=== PATIENT | male | born 1970 | race African-American/Black ===

== ENCOUNTER 2024-10-14 10:29 | Emergency (ER) | payer OTHER, SELFPAY ==
[2024-10-14 10:35] VITALS: BP 141/86
[2024-10-14 11:01] VITALS: BP 116/74
--- NOTE | 2024-10-14 11:20 | ED.GENMED ---
History of Present Illness
General
Chief Complaint: Chest Pain
Source: patient
Time Seen by Provider: 10/14/24 11:09
History of Present Illness
History of Present Illness:
54yoM with a history of hyperlipidemia presenting for evaluation of chest pain. Patient was sitting on the couch last night and was falling asleep. He woke up with pain in the right side of his chest around 8pm. The pain is described as a shooting
pain. He reports being sweaty when the pain first started. The pain has been intermittent since it began and intermittently radiates down the right arm. His pain is currently rated as a 6/10 in severity. The pain is worse with certain positions. He
denies any shortness of breath, nausea, leg swelling, syncope, paresthesias. He works at the [employer] and walks >8 miles a day. He denies any pain with exertion.
Phy Exam
General Physical Exam
General Presentation: well appearing and no apparent distress
General age: appears stated age
General Skin: warm and dry
General Habitus: normal
General Mental: alert
General Hydration: appears well hydrated
ENT Exam
ENT Exam: normocephalic
Cardiovascular Exam
Cardiovascular Exam: regular rate/rhythm, no murmur and normal peripheral pulses (2+ radial and DP pulses bilaterally)
Pulmonary Exam
Pulmonary Exam: lungs clear, no respiratory distress, no rales, no crackles, no rhonchi and other (+Point tenderness to R chest wall. No skin changes. )
Skin Exam
Skin Exam: normal color and warm/dry
Psychiatric Exam
Psychiatric Exam: normal mood/affect
Scores
Heart Score for Chest Pain Patients
STEMI patient?: No
History: Slightly or Non-Suspicious
ECG: Nonspecific Repolarization
Age: >45 - <65 years
Risk Factors: 1 or 2 Risk Factors
Troponin: </= Normal Limit
Heart Score for Chest Pain Patients: 3
Heart Score Risk: 2.5% MACE over next 6 weeks
Course
Orders/Labs/Results
Orders:
Orders
10/14/24 10:30
EKG [Electrocardiogram (*1)] Urgent
Reason for Study: Chest Pain
EKG- Treatment ONCE
10/14/24 11:16
Acetaminophen [Tylenol] 1,000 mg PO NOW STA
10/14/24 11:17
Cardiac Monitoring- Treatment ONCE
CR Chest - 2 Views Urgent
Comment:
Reason For Exam: CP
10/14/24 12:15
Complete Blood Count/With Diff Urgent
Comprehensive Metabolic Panel Urgent
Troponin I Urgent
Abnormal Lab Results
10/14/24
12:15
Hgb 12.9 L g/dL
(13.0-18.0)
MCH 26.8 L pg
(27.0-31.0)
MCHC 31.2 L g/dL
(33.0-37.0)
Neutrophils % 38.4 L %
(42.2-75.2)
Monocytes % 11.4 H %
(1.7-9.3)
Glucose 107 H mg/dl
(70-99)
10/14/24 12:15
10/14/24 12:15
Vital Signs
Initial and Last Documented VS:
Initial Vital Signs
Temp Pulse Resp BP Pulse Ox
98.4 F 83 18 141/86 94
10/14/24 10:35 10/14/24 10:35 10/14/24 10:35 10/14/24 10:35 10/14/24 10:35
Last Documented Vital Signs
Temp Pulse Resp BP Pulse Ox
98.4 F 69 19 133/89 98
10/14/24 10:35 10/14/24 13:00 10/14/24 13:00 10/14/24 13:00 10/14/24 13:00
MDM/Problems Addressed
Differential Diagnosis Includes:
54yoM here with R sided chest pain that started last night. Intermittent. Radiates to R arm. Worse with certain positions. VSS. He is well appearing in no distress. There is point tenderness to the chest wall on exam. Exam otherwise reassuring.
Differential diagnosis includes but is not limited to: musculoskeletal, ACS, pneumonia, pneumothorax, less likely PE
Initial ED plan: Check cardiac labs, EKG, and CXR.
*EKG
Interpreted by ED Provider?: Yes
EKG Intrepretation Date: 10/14/24
Heart Rate: 73
Rate: normal
Rhythm: sinus
[place]: normal axis
Interval: normal interval
QRS Pattern: normal QRS
Ischemia: T-wave inversion (Nonspecific ST/T wave changes in leads III and aVF. No prior EKGs to compare to. )
*Critical Care Note
Total Time (30-74mins, 75-104mins- exclusive of procedures): Not Applicable
Update Note
Update Note:
EKG shows nonspecific changes in leads III and aVF. No other EKG changes noted and no prior EKGs to compare to. Troponin WNL. CXR is clear. Pain improved to a 4/10 in severity after Tylenol. Question whether pain is musculoskeletal as pain worsens
with certain positions and there is chest wall tenderness on exam. HEART score is 3. No indication for hospitalization at this time. Advised close f/u with PCP and cardiology. Strict ED return precautions discussed. He expressed understanding and is
agreeable to plan. He was discharged in stable condition.
ED Attending Note
-
Portions of this chart may have been created with voice recognition software.� Occasional wrong word or��sound alike� substitutions may have occurred due to the inherent limitations of voice recognition software.
Discharge Plan
Departure
Patient Disposition: Home (Routine Discharge)
Date of Disposition: 10/14/24
Time of Disposition: 13:07
Patient with high blood pressure during this ER visit?: No
Discharge Problem:
Chest pain, Nonspecific abnormal electrocardiogram (ECG)
Instructions: Chest Pain PCP Follow Up
Referrals:
Franc Acuña MD [Active] -
Quan Sanchez DO [Family Provider] -
Activity Restrictions/Additional Instructions:
Please call today to schedule a follow-up with your family doctor and cardiology. Return to the ER immediately with any new or worsening symptoms.
Interventions
Interventions:
*Risk Screen - Suicide Last Done: 10/14/24 10:35
*General Assessment Last Done: 10/14/24 10:35
*Neglect/Abuse Screening Last Done: 10/14/24 10:35
ED- Fall Risk Assessment Last Done: 10/14/24 12:18
*Nursing Disposition Last Done: 10/14/24 13:37
ED- Cardiac Assessment Last Done: 10/14/24 12:18
Discharge Date and Time
Discharge Date/Time: 10/14/24 13:37
Print Language: ARGENTINE
[2024-10-14 12:14] VITALS: BMI 31.2
[2024-10-14] MEDS: TYLENOL 1000 MG PO (12:14)
[2024-10-14 12:16] VITALS: BP 126/78
[2024-10-14 12:31] LABS: % Basophils 0.9 % (0-2); % Eosinophils 5.5 % (0-6); % Immature Granulocytes 0.4 % (0-0.5); % Lymphocytes 43.4 % (20.5-51.1); % Monocytes 11.4 % (1.7-9.3); % Neutrophils 38.4 % (42.2-75.2); Absolute Basophils 0.1 10^3/uL (0-0.2); Absolute Eosinophils 0.3 10^3/uL (0-0.7); Absolute Lymphocytes 2.4 10^3/uL (1.2-3.4); Absolute Monocytes 0.6 10^3/uL (0.1-0.6); Absolute Neutrophils 2.1 10^3/uL (1.4-6.5); Hematocrit 41.3 % (39.0-52.0); Hemoglobin 12.9 g/dL (13.0-18.0); Mean Corp Hgb Conc. 31.2 g/dL (33.0-37.0); Mean Corpuscular Hgb 26.8 pg (27.0-31.0); Mean Corpuscular Volume 85.9 fL (80.0-94.0); Mean Platelet Volume 10.2 fL (7.4-10.4); Nucleated Red Blood Cells % 0 % (-); Platelet Count 202 10^3/uL (130-400); Red Blood Cell Count 4.81 10^6/uL (4.70-6.10); Red Cell Dist. Width 14.1 % (11.5-14.5); White Blood Cell Count 5.4 10^3/uL (4.8-10.8)
[2024-10-14 12:44] LABS: ALT (SGPT) 35 U/L (0-50); AST (SGOT) 37 U/L (17-59); Albumin 4.4 g/dl (3.5-5.0); Alkaline Phosphatase 73 U/L (38-126); Blood Urea Nitrogen 17 mg/dl (9-20); Calcium 9.7 mg/dl (8.4-10.2); Carbon Dioxide 28 mmol/L (22-30); Chloride 103 mmol/L (98-107); Estimated Creatinine Clearance 120 ml/min; Glucose 107 mg/dl (70-99); Potassium 4.3 mmol/L (3.5-5.1); Sodium 139 mmol/L (135-145); Total Bilirubin 0.2 mg/dl (0.2-1.3); Total Protein 7.4 g/dl (6.3-8.2); eGFR > 60.00
[2024-10-14 12:56] LABS: Troponin I < 0.012 ng/ml
[2024-10-14 13:00] VITALS: BP 133/89
== END 2024-10-14 13:37 | disposition home or self-care (01) ==
LOC: EMR 10:29
PROVIDERS: Physician Assistant; EMERGENCY PHYSICIAN Emergency Medicine; FAMILY PHYSICIAN Family Medicine
DX: R07.89 Other chest pain (principal); M79.601 Pain in right arm; R94.31 Abnormal electrocardiogram [ECG] [EKG]
CPT/HCPCS: 99283; 71046; 80053; 84484; 85025; 93005